=== PATIENT | male | born 1980 | race African-American/Black ===

== ENCOUNTER → 2017-08-11 | Emergency (ER) | payer OTHER ==
[~2017-08-11] VITALS: Ht 177.8 cm; Wt 95.0 kg
[~2017-08-11] MED LIST: HYDR-906 PO; IBUP-1542 PO; traMADol 50 MG TAB PO ONE
[2017-08-11 02:31] VITALS: Ht 177.8 cm; Wt 95.0 kg
--- NOTE | 2017-08-11 04:09 | ERD ---
ER Documentation Chief Complaint Chief Complaint Jaw pain x 5 day, after falling and hitting the shopping cart HPI 37-year-old male presents here to emergency department for complaints of jaw pain for 5 days after hitting it with a shopping cart when he fell 5 days ago. Patient describes the pain as throbbing pain, 6/10 scale, as was upon opening and closing the mouth. Patient did not take any medications for pain. Patient denies any numbness or tingling. Patient denies any loss of consciousness, nausea or vomiting, blurry vision. Patient denies any changes in balance or memory. ROS All systems reviewed and are negative except as per history of present illness. Medications Home Meds Reported Medications [none] Unknown Strength No Conflict Check 08/11/17 Allergies Allergies: Coded Allergies: No Known Allergy (Unverified , 08/11/17) PMhx/Soc Medical and Surgical Hx: pt denies Medical Hx Hx Alcohol Use: No Hx Substance Use: No Hx Tobacco Use: Yes Smoking Status: Former smoker FmHx Family History: No coronary disease, No diabetes, No other Physical Exam Vitals Vital Signs Date Time Temp Pulse Resp B/P Pulse Ox O2 Delivery O2 Flow Rate FiO2 08/11/17 02:31 98.2 88 20 158/82 99 Physical Exam GENERAL: The patient is well developed and appropriate for usual state of health, in no apparent distress. HEENT: Atraumatic. Ears: Normal tympanic membrane, no erythema or bulging. No ear canal swelling. No ear discharge. Nose: normal nasal turbinates, no erythema or swelling. Normal nasal discharge. Throat: oropharynx clear. No tonsillar swelling or tonsillar exudates. No lymphadenopathy. Noted tenderness on palpation and mandibular area, able to open and close the mouth without any restriction. CHEST: Clear to auscultation bilaterally. There are no rales, wheezes or rhonchi. HEART: Regular rate and rhythm. No murmurs, clicks, rubs or gallops. No S3 or S4. ABDOMEN: Soft, nontender and nondistended. Good bowel sounds. No rebound or guarding. No gross peritonitis. No gross organomegaly or masses. No Durand sign or McBurney point tenderness. BACK: No midline or flank tenderness. EXTREMITIES: Equal pulses bilaterally. There is no peripheral clubbing, cyanosis or edema. No focal swelling or erythema. Full range of motion. Grossly neurovascularly intact. NEURO: Alert and oriented. Cranial nerves 2-12 intact. Motor strength in all 4 extremities with 5/5 strength. Sensation grossly intact. Normal speech and gait. SKIN: There is no apparent rash or petechia. The skin is warm and dry. HEMATOLOGIC AND LYMPHATIC: There is no evidence of excessive bruising or lymphedema. No gross cervical, axillary, or inguinal lymphadenopathy. Results 24 hrs PROCEDURE: CT facial bones CLINICAL INDICATION: Jaw pain, trauma TECHNIQUE: A CT of the facial bones was performed on a GE 64-slice CT scanner utilizing high-resolution axial images. Sagittal, coronal, and multiplanar reformatted images were made. The CTDIvol is 29.56 mGy and the DLP is 627.19 mGy-cm. One or more of the following dose reduction techniques were used: automated exposure control, adjustment of the mA and/or kV according to patient size, or use of iterative reconstruction technique. DICOM images are available COMPARISON: None. FINDINGS: There is mild left jaw soft tissue swelling. The mandible and temporomandibular joints are intact. The orbital bones and contents are normal. There is no evidence of a nasal bone or zygomatic arch fracture. The paranasal sinuses are well pneumatized. There is mild ethmoid and minimal maxillary sinus mucosal thickening. There is a left silvano bullosa. The mastoid air cells are clear. IMPRESSION: Mild left jaw tissue swelling. No evidence of a facial bone fracture. Physician Aurora Date Time Electronically viewed and signed by Physician Aurora on 08/11/2017 05: 05 CS/ CC: THIERNO SOMMER NP Procedures/MDM Medical Decision Making: Patient symptoms most likely is consistent with a jaw strain or contusion. No fractures noted in the mandible there is low suspicion for neurological emergencies at this time since patients neurologic exam is normal. Patient did not have any altered level consciousness, vomiting, changes in balance or memory after incident. Patient was given for ibuprofen for mild- to-moderate pain, [place] for severe pain, is advised to follow-up with primary care doctor 1-2 days for reevaluation of symptoms. Patient was advised to return to emergency department for any worsening symptoms. Dispostion: Home. Stable Disclaimer: Inadvertent spelling and grammatical errors are likely due to EHR/ dictation software use and do not reflect on the overall quality of patient care. Also, please note that the electronic time recorded on this note does not necessarily reflect the actual time of the patient encounter. Departure Diagnosis: Primary Impression: Jaw pain Condition: Stable Patient Instructions: Helping Your Temporomandibular Joint (TMJ) Heal THIERNO SOMMER NP Aug 11, 2017 04:09
--- NOTE | 2017-08-11 05:05 | RADRPT ---
PROCEDURE: CT facial bones CLINICAL INDICATION: Jaw pain, trauma TECHNIQUE: A CT of the facial bones was performed on a GE 64-slice CT scanner utilizing high-resol ution axial images. Sagittal, coronal, and multiplanar reformatted images were made. The CTDIvol is 29.56 mGy and the DLP is 627.19 mGy-cm. One or more of the following dose reduction techniques we re used: automated exposure control, adjustment of the mA and/or kV according to patient size, or us e of iterative reconstruction technique. DICOM images are available COMPARISON: None. FINDINGS: There is mild left jaw soft tissue swelling. The mandible and temporomandibular joints are intact. T he orbital bones and contents are normal. There is no evidence of a nasal bone or zygomatic arch fra cture. The paranasal sinuses are well pneumatized. There is mild ethmoid and minimal maxillary sinu s mucosal thickening. There is a left silvano bullosa. The mastoid air cells are clear. IMPRESSION: Mild left jaw tissue swelling. No evidence of a facial bone fracture. Physician Aurora Date Time Electronically viewed and signed by Physician Aurora on 08/11/2017 05:05 /
[2017-08-11 05:22] VITALS: BP 142/79; PULSE 83; RESP 20; TEMP 98.2
== END | disposition home or self-care (01) ==
LOC: FTE 02:27
DX: R68.84 Jaw pain (principal); Z87.891 Personal history of nicotine dependence
CPT/HCPCS: 70486; Z7502; Z7610

== ENCOUNTER 2018-01-16 18:27 | Emergency (ER) | END 2018-01-17 03:02 | disposition home or self-care (01) ==